=== PATIENT | male | born 1985 | race Two or more races ===

== ENCOUNTER 2025-02-28 11:13 | Emergency (ER) | payer MEDICAID ==
[~2025-02-28] VITALS: Ht 172.7 cm; Wt 68.9 kg
[2025-02-28 11:18] VITALS: TEMP 98.2
[2025-02-28] MEDS ORDERED: CYCLOBENZAPRINE 10 MG TABLET ONE (12:06)
[2025-02-28] MEDS ORDERED: IBUPROFEN 600 MG TABLET ONE (12:06)
[2025-02-28] MEDS: IBUPROFEN 600 MG TABLET PO ONE (12:10)
[2025-02-28] MEDS: CYCLOBENZAPRINE 10 MG TABLET PO ONE (12:10)
[2025-02-28] MEDS ORDERED: CYCL5TAB PO (12:14)
[2025-02-28 12:34] VITALS: BP 120/68; O2SAT 98
== END 2025-02-28 12:32 | disposition home or self-care (01) ==
LOC: ER 11:13
DX: M54.6 Pain in thoracic spine (principal); M54.2 Cervicalgia; M25.511 Pain in right shoulder; V43.62XA Car passenger injured in collision with other type car in traffic accident, initial encounter; Y93.89 Activity, other specified; Y92.488 Other paved roadways as the place of occurrence of the external cause; Y99.8 Other external cause status